=== PATIENT | male | born 2000 | race Caucasian/White ===

== ENCOUNTER → 2018-06-25 | Outpatient (CLI) | payer OTHER ==
[~2018-06-25] MED LIST: IBUPROFEN 400400 M1 PO; KEFLEX250 MG PO; Vyvanse; risperidone
== END ==
LOC: M.ULTRA 07:22
DX: R10.11 Right upper quadrant pain (principal)

== ENCOUNTER 2019-11-19 18:44 | Emergency (ER) | payer OTHER ==
[~2019-11-19] VITALS: Ht 165.1 cm; Wt 107.5 kg
[2019-11-19] MEDS ORDERED: KEFLEX500 M1 PO (20:20)
[2019-11-19 20:30] VITALS: BP 132/81
== END 2019-11-19 20:31 | disposition home or self-care (01) ==
LOC: M.ERS 18:44
DX: M79.671 Pain in right foot (principal); F31.9 Bipolar disorder, unspecified; F90.9 Attention-deficit hyperactivity disorder, unspecified type; Z88.8 Allergy status to other drugs, medicaments and biological substances